=== PATIENT | female | born 1955 | race Caucasian/White ===

== ENCOUNTER 2024-01-20 16:35 | Emergency (ER) | payer MEDICARE, SELFPAY ==
[2024-01-20 16:53] VITALS: BP 130/74; PULSE 87; RESP 20; TEMP 36.8; O2SAT 98; BMI 31.3
[2024-01-20 17:20] VITALS: O2SAT 95
[2024-01-20] MEDS: KETOROLAC 15 MG/ML inj IVP (17:23)
[2024-01-20] MEDS: MORPHINE 4 MG/ML INJ IVP (17:23)
--- NOTE | 2024-01-20 17:29 | ED.GENADULT ---
HPI - General Adult General Chief complaint: Back Injury/Pain Stated complaint: back pain, lower left moving boxes Time Seen by Provider: 01/20/24 16:54 Source: patient and family Mode of arrival: ambulatory Limitations: no limitations History of Present Illness HPI narrative: Patient is a 68-year-old woman here with her daughter. She currently lives in [place], she is moving to live with her daughter for while and so she was packing boxes the past couple of days. She notes that yesterday she lifted a heavy box and she thinks she lifted more with her back then with her knees and strained her low back on the left side. She has no radiating pain. She does have pain in the left lumbar region which is worsened with activity, improved with rest. She has no urinary symptoms or fevers. She has been taking ibuprofen and Tylenol but pain is persistent. She does have a history of some orthopedic surgeries, shoulder surgeries, knee injections that sort of thing but has not had any procedures on her back. Has no radiating pain, weakness or numbness. Related Data Home Medications ?Medication ?Instructions ?Recorded ?Confirmed levetiracetam 2 tab PO BID 01/20/24 01/20/24 phenytoin sodium extended 30 mg 30 mg PO DAILY 01/20/24 01/20/24 capsule (Dilantin) sumatriptan succinate PO PRN 01/20/24 Allergies Allergy/AdvReac Type Severity Reaction Status Date / Time No Known Drug Allergies Allergy Verified 01/20/24 16:50 Review of Systems Status of ROS: Reports: 6 or more systems reviewed and unremarkable except as noted in History and below [facility] Social History Smoking Status: Smoker, status unknown Exam Narrative: Exam Narrative: Vital signs as noted above. In general, an alert, well-appearing patient. Head: Normocephalic, atraumatic. Eyes: Pupils are equal reactive. Extraocular movements are full. Conjunctivae are normal. ENT: Mucous membranes are moist. Throat is normal. Neck: Supple without lymphadenopathy. Heart: Regular rate and rhythm. No murmur or rub. Lungs: Clear bilaterally. No increased work of breathing, crackles or wheezes. Abdomen: Soft and nontender. Back: She has diffuse tenderness to light palpation of the lumbar musculature. Difficult to palpate spasm as she will not let me really touched anywhere firmly enough to determine whether there is an area of spasm. No visible rash. Extremities: Well perfused. No edema. No calf tenderness. Pulses intact. Neurologic: Patient is alert and oriented to person and place. Speech is fluent. Face is symmetric. Moves all extremities equally. Affect: Normal. Skin: Warm and dry. Well perfused. Const: Vital Signs, click to edit/add: Vital Signs - 24 hr 01/20/24 16:53 Temperature 98.2 F Pulse Rate [Pulse Oximeter] 87 Respiratory Rate 20 Blood Pressure [Ri ght Upper Arm] 130/74 Pulse Oximetry 98 Oxygen Delivery Me thod Room Air Documenting provider has reviewed patient's vital signs: yes Course Course ED Course: Overall symptoms seem most likely to be related to muscle spasm, discussed with them that I cannot entirely rule out the possibility of disc herniation but symptoms are atypical at this time. She has no red flags suggesting the need for immediate imaging. For here, will place an IV, give 4 mg of morphine and 15 mg of Toradol. For home, told her that I would recommend using scheduled ibuprofen and Tylenol, muscle relaxers, ice with primary care follow-up if not improving over the next couple of weeks. [facility] sees [facility] for [facility]. Patient is improved with above medications, feels comfortable going home. Home medications as above, primary care follow-up if not improving, return for worsening or new symptoms. Vital Signs Vital signs: Initial Vital Signs Temperature 98.2 F 01/20/24 16:53 Temperature Source Temporal Artery Scan 01/20/24 16:53 Pulse Rate 87 01/20/24 16:53 Respiratory Rate 20 01/20/24 16:53 Blood Pressure 130/74 01/20/24 16:53 Blood Pressure Mean 92 01/20/24 16:53 Blood Pressure Position Semi-Fowlers 01/20/24 16:53 Pulse Oximetry 98 01/20/24 16:53 Oxygen Delivery Method Room Air 01/20/24 16:53 Vital Signs Temperature 98.2 F 01/20/24 16:53 Pulse Rate 87 01/20/24 16:53 Respiratory Rate 20 01/20/24 16:53 Blood Pressure 130/74 01/20/24 16:53 Pulse Oximetry 98 01/20/24 16:53 Oxygen Delivery Method Room Air 01/20/24 16:53 Temperature 98.2 F 01/20/24 18:13 Pulse Rate 87 01/20/24 18:13 Respiratory Rate 14 01/20/24 18:13 Blood Pressure 130/74 01/20/24 18:13 Pulse Oximetry 96 01/20/24 18:00 Oxygen Delivery Method Room Air 01/20/24 16:53 Medications Administered Medications: Discontinued Medications Generic Name Dose Route Start Last Admin Trade Name Silvino PRN Reason Stop Dose Admin Ketorolac Tromethamine 15 mg 01/20/24 17:02 01/20/24 17:23 Ketorolac 15 Mg/Ml Inj IVP 01/20/24 17:03 15 mg ONCE ONE Administration Morphine Sulfate 4 mg 01/20/24 17:02 01/20/24 17:23 Morphine 4 Mg/Ml Inj IVP 01/20/24 17:03 4 mg ONCE ONE Administration Discharge Plan Discharge Clinical Impression: Strain of lumbar region Patient Disposition: Home, Self-Care Condition: Improved Instructions: Low Back Strain (ED) Additional Instructions: I would recommend ibuprofen 400 mg plus Tylenol 1000 mg 3 times daily with food over the next few days to week. Muscle relaxer as prescribed. Ice liberally over the next few days as well. If you are not improving with conservative measures over the next 7-10 days, please follow-up with your primary doctor for additional evaluation and referral if needed for imaging, physical therapy etcetera. If at any time you have severe uncontrolled pain, weakness, numbness, fevers or other significant changes return for re-evaluation. Prescriptions: No Action levetiracetam [Keppra] 2 tab PO BID Dilantin 30 mg capsule 30 mg PO DAILY sumatriptan succinate PO PRN Follow Up/Referrals: Provider,Not a Local [Primary Care Provider] - Stand Alone Forms: [employer] Info Instructions
[2024-01-20 18:00] VITALS: PULSE 75; RESP 14; O2SAT 96
[2024-01-20 18:13] VITALS: BP 130/74; PULSE 87; RESP 14; TEMP 36.8
== END 2024-01-20 18:13 | disposition home or self-care (01) ==
PROVIDERS: Emergency Provider Emergency Medicine; Visit Provider Emergency Medicine
DX: S39.012A Strain of muscle, fascia and tendon of lower back, initial encounter (principal); X50.3XXA Overexertion from repetitive movements, initial encounter
CPT/HCPCS: 94761; 96374; 96375; 99283; 99284; J1885; J2270